=== PATIENT | male | born 1970 | race Caucasian/White ===

== ENCOUNTER 2019-02-11 17:10 | Emergency (ER) | payer MEDICARE ==
[~2019-02-11] VITALS: Ht 182.9 cm; Wt 86.4 kg
[2019-02-11 17:15] VITALS: Ht 182.9 cm; Wt 86.4 kg
[2019-02-11] MEDS ORDERED: TOPROL XL25 MG PO (17:16)
[2019-02-11] MEDS ORDERED: VALIUM5 MG PO (17:16)
[2019-02-11] MEDS ORDERED: XANAX1 MG PO (17:16)
[2019-02-11] MEDS ORDERED: TYLENOL W/CODEI1 TAB PO (19:59)
[2019-02-11] MEDS ORDERED: NAPROSYN500 MG PO (19:59)
[2019-02-11] MEDS ORDERED: KEFLEX500 MG PO (19:59)
[2019-02-11 21:05] VITALS: BP 143/96
== END 2019-02-11 21:05 | disposition home or self-care (01) ==
LOC: D.ER 17:10 → EDBD 17:10 → D.ER 21:05
DX: S61.221A Laceration with foreign body of left index finger without damage to nail, initial encounter (principal); S61.223A Laceration with foreign body of left middle finger without damage to nail, initial encounter; S61.227A Laceration with foreign body of left little finger without damage to nail, initial encounter; W19.XXXA Unspecified fall, initial encounter